=== PATIENT | male | born 1960 ===

== ENCOUNTER 2019-07-03 13:45 | Inpatient (IN) | payer OTHER ==
[~2019-07-03] VITALS: Ht 172.7 cm; Wt 76.2 kg
[2019-07-03] MEDS ORDERED: LEVO-T112 MCG PO (15:36)
[2019-07-03] MEDS ORDERED: CRESTOR20 MG PO (15:37)
[2019-07-08] MEDS ORDERED: ACETAMINOPHEN-1 EAC2 PO (16:41)
[2019-07-08] MEDS ORDERED: COLACE100 MG PO (16:42)
[2019-07-08] MEDS ORDERED: DIAZEPAM10 MG PO (16:42)
== END 2019-07-11 13:40 | disposition home or self-care (01) | DRG 453 ==
LOC: O/R 13:45 → SURH 07-08 13:30
PROVIDERS: ADMIT Orthopaedic Surgery Orthopaedic Surgery of the Spine
PROC: 0RG2071 Fusion of 2 or more Cervical Vertebral Joints with Autologous Tissue Substitute, Posterior Approach, Posterior Column, Open Approach (ICD-10-PCS; 2019-07-08)
PROC: 0RT30ZZ Resection of Cervical Vertebral Disc, Open Approach (ICD-10-PCS; 2019-07-08)
PROC: 07DS3ZZ Extraction of Vertebral Bone Marrow, Percutaneous Approach (ICD-10-PCS; 2019-07-08)
PROC: 4A12X4Z Monitoring of Cardiac Electrical Activity, External Approach (ICD-10-PCS; 2019-07-08)
PROC: 0RG20A0 Fusion of 2 or more Cervical Vertebral Joints with Interbody Fusion Device, Anterior Approach, Anterior Column, Open Approach (ICD-10-PCS; principal; 2019-07-08 13:30)
PROC: 4A033R1 Measurement of Arterial Saturation, Peripheral, Percutaneous Approach (ICD-10-PCS; 2019-07-09)
PROC: 3E0F7GC Introduction of Other Therapeutic Substance into Respiratory Tract, Via Natural or Artificial Opening (ICD-10-PCS; 2019-07-10)
DX: M50.01 Cervical disc disorder with myelopathy, high cervical region (principal); J95.822 Acute and chronic postprocedural respiratory failure; E03.8 Other specified hypothyroidism